=== PATIENT | female | born 1965 | race Caucasian/White ===

== ENCOUNTER 2018-03-11 13:49 | Emergency (ER) | payer OTHER ==
[~2018-03-11] VITALS: Ht 175.2 cm; Wt 99.8 kg
[~2018-03-11 13:49] MED LIST: HYDROCODONE BIT1 T11 PO; MOTRIN600 MG PO; ZYRTEC5 M1 PO
[2018-03-11] MEDS ORDERED: FLONASE ALLERG9.9 ML NAS (14:22)
[2018-03-11] MEDS ORDERED: AUGMENTIN 500500 M1 PO (14:22)
[2018-03-11] MEDS ORDERED: PREDNISONE10 MG PO (14:22)
[2018-03-11] MEDS ORDERED: CLARITIN10 MG PO (14:22)
== END 2018-03-11 14:42 | disposition home or self-care (01) ==
LOC: ED 13:49
DX: J01.90 Acute sinusitis, unspecified (principal); R03.0 Elevated blood-pressure reading, without diagnosis of hypertension

== ENCOUNTER 2019-05-29 16:04 | Emergency (ER) | payer OTHER ==
[~2019-05-29] VITALS: Ht 175.2 cm; Wt 102.1 kg
[~2019-05-29 16:04] MED LIST changes: +AUGMENTIN 500500 M1 PO; +CLARITIN10 MG PO; +FLONASE ALLERG9.9 ML NAS; +PREDNISONE10 MG PO
[2019-05-29] MEDS ORDERED: CYCLOBENZAPRINE5 M3 PO (17:28)
[2019-05-29] MEDS ORDERED: Motrin,Rufen800 MG PO (17:28)
[2019-05-29] MEDS ORDERED: ZOFRAN4 MG PO (17:28)
== END 2019-05-29 19:00 | disposition home or self-care (01) ==
LOC: ED 16:04
DX: S13.4XXA Sprain of ligaments of cervical spine, initial encounter (principal); M54.5 Low back pain; R51 Headache; Z79.2 Long term (current) use of antibiotics; Z79.899 Other long term (current) drug therapy; V43.52XA Car driver injured in collision with other type car in traffic accident, initial encounter; Y93.I9 Activity, other involving external motion; Y92.488 Other paved roadways as the place of occurrence of the external cause; Y99.8 Other external cause status

== ENCOUNTER 2019-06-02 13:23 | Emergency (ER) | payer OTHER ==
[~2019-06-02] VITALS: Ht 175.2 cm; Wt 102.1 kg
[~2019-06-02 13:23] MED LIST changes: +CYCLOBENZAPRINE5 M3 PO; +Motrin,Rufen800 MG PO; +ZOFRAN4 MG PO
[2019-06-02 14:22] LABS: BASO % 0.5 % (0.0-1.0); EOS # 0.1 10*3/uL (0.0-0.4); EOS % 1.7 % (1.0-4.0); HEMATOCRIT 43.7 % (37.0-47.0); HEMOGLOBIN 13.8 g/dl (12.0-16.0); LYMPH # 1.9 10*3/uL (1.3-4.4); LYMPH % 30.7 % (27.0-41.0); MEAN CELL VOLUME 91.6 fl (81.0-99.0); MEAN CORPUSCULAR HGB 28.9 pg (27.0-31.0); MEAN CORPUSCULAR HGB CONC 31.6 g/dl (33.0-37.0); MEAN PLATELET VOLUME 10.8 fl (9.6-12.3); MONO # 0.4 10*3/uL (0.1-1.0); MONO % 6.3 % (3.0-9.0); NEUT # 3.7 10*3/uL (2.3-7.9); NEUT % 60.6 % (47.0-73.0); PLATELET COUNT AUTOMATED 233 10*3/uL (130-400); RED BLOOD COUNT 4.77 10*6/uL (4.10-5.10); RED CELL DISTRI WIDTH 12.3 % (0-14.5)
[2019-06-02 14:37] LABS: ALBUMIN 3.7 gm/dl (3.1-4.5); ALKALINE PHOSPHATASE 78 U/L (45-117); BUN 9 mg/dl (7-24); CHLORIDE 106 mmol/L (98-107); CREATININE 0.76 mg/dL (0.55-1.02); POTASSIUM 4.6 mmol/L (3.5-5.1); SGOT/AST 34 IU/L (3-35); SGPT/ALT 27 U/L (12-78); SODIUM 141 mmol/L (136-145); TOTAL PROTEIN 7.3 gm/dL (6.4-8.2)
[2019-06-02 15:08] LABS: BILIRUBIN NEGATIVE (NEGATIVE); BLOOD NEGATIVE (NEGATIVE); CLARITY SL CLOUDY (CLEAR); COLOR YELLOW (YELLOW); GLUCOSE NEGATIVE (NEGATIVE); KETONE NEGATIVE (NEGATIVE); LEUKO ESTERASE TRACE (NEGATIVE); NITRITE NEGATIVE (NEGATIVE); PH 7.5 (5.0-9.0); UROBILINOGEN 0.2 E.U./dl (0.2-1.0)
[2019-06-02 15:18] LABS: BACTERIA 2+
[2019-06-02 15:20] LABS: EPITHELIAL CELLS 0-2
[2019-06-02] MEDS ORDERED: ZOFRAN4 MG SL (18:28)
== END 2019-06-02 18:20 | disposition home or self-care (01) ==
LOC: ED 13:23
PROVIDERS: Nurse Practitioner
DX: S06.0X0A Concussion without loss of consciousness, initial encounter (principal); V43.52XA Car driver injured in collision with other type car in traffic accident, initial encounter; Y93.89 Activity, other specified; Y92.89 Other specified places as the place of occurrence of the external cause; Y99.8 Other external cause status